=== PATIENT | female | born 1995 | race Caucasian/White ===

== ENCOUNTER 2018-05-18 15:00 | Outpatient (CLI) | payer BC, SELFPAY ==
--- NOTE | 2018-05-18 15:15 | DI.US_ITS ---
SYMPTOM/DIAGNOSIS: POSSIBLE PID PELVIC ULTRASOUND: There are no prior comparison exams. Transabdominal and transvaginal exams were performed. The uterus measures 8.1 x 4.2 x 5.8 cm. No fibroids are identified. The endometrial stripe is somewhat thickened and irregular measuring 18 mm. The right ovary is unremarkable. There is a 2.1 cm left ovarian cyst, likely corpus luteum cyst. There is a small amount of fluid around the left ovary and in the cul de sac. There is no evidence of hydronephrosis. IMPRESSION: Mildly thickened heterogeneous endometrium. Correlation with the patient's menstrual cycle is recommended.
--- NOTE | 2018-05-18 16:42 | DI.VRAD_ITS ---
EXAM: US Pelvis Complete, Transabdominal and US Pelvis, Transvaginal EXAM DATE/TIME: 05/18/2018 4:18 PM CLINICAL HISTORY: 23 years old, female; Pain; Pelvic pain TECHNIQUE: Real-time transabdominal and transvaginal pelvic ultrasound (complete) with image documentation. Transvaginal imaging was used for better evaluation of the endometrium and adnexa. COMPARISON: No relevant prior studies available. FINDINGS: Uterus/cervix: Endometrium is heterogeneous and thickened 1.8 cm. Uterus measures 8.1 x 4.2 x 5.7 cm Right adnexa: Right ovary measures 3.3 x 2 x 2.6 cm . Color Doppler demonstrated in the right ovary Left adnexa: Left ovary measures 2.5x 4.2x 2.5 cm and contains a 1.5 cm cyst.. Color Doppler demonstrated in the left ovary Free fluid: Minimal free fluid in the posterior cul-de-sac Bladder: Normal. Other findings: No duplex assessment of either ovary. Consequently Ovarian torsion cannot be ruled out. Recommend duplex assessment if ovarian torsion is suspected clinically IMPRESSION: Endometrium is heterogeneous and thickened 1.8 cm. Recommend correlation with patient's menstrual cycle. Differential includes endometrial hyperplasia and endometrial polyps. Endometrial carcinoma less likely given the patient's age Complex left ovarian cyst. Cystic component measures 1.5 cm. No duplex assessment of either ovary. Consequently Ovarian torsion cannot be ruled out. Recommend duplex assessment if ovarian torsion is suspected clinically Dictated and Authenticated by: Fracisco Pimentel MD. Ordering:SAYDA WARREN MD
== END 2018-05-18 15:20 ==
PROVIDERS: PCP Nurse Practitioner; Visit Provider Nurse Practitioner
DX: R93.89 Abnormal findings on diagnostic imaging of other specified body structures (principal); N83.12 Corpus luteum cyst of left ovary
CPT/HCPCS: 76830; 76856

== ENCOUNTER 2018-07-02 00:54 | Outpatient (CLI) | payer BC, SELFPAY ==
--- NOTE | 2018-07-02 13:03 | DI.US_ITS ---
SYMPTOM/DIAGNOSIS: F/U COMPLEX LT OVARIAN CYST, ENDOMETRIAL HYPERPLASIA, STILL CRAMPING PELVIC ULTRASOUND: Transabdominal and transvaginal examination was performed. The uterus measures 7.5 cm. long by 4 cm. AP by 5.5 cm. transverse. The endometrial stripe is within normal limits at .7 cm. No evidence of a myometrial mass is present. The right ovary measures 3.4 by 2 by 2.2 cm. There are follicular cysts present. There is normal blood flow. No evidence of torsion. The left ovary measures 4.6 by 1.9 by 1.7 cm. There are small follicular cysts present. The previously noted left ovarian cyst has resolved. There is normal blood flow to the left ovary. No evidence of torsion is seen. No free pelvic fluid is identified. IMPRESSION: Normal pelvic ultrasound.
== END 2018-07-02 01:14 ==
PROVIDERS: PCP Nurse Practitioner; Visit Provider Nurse Practitioner
DX: N83.292 Other ovarian cyst, left side (principal); N83.01 Follicular cyst of right ovary; N83.02 Follicular cyst of left ovary; N85.00 Endometrial hyperplasia, unspecified
CPT/HCPCS: 76830; 76856